=== PATIENT | female | born 1980 | race Caucasian/White ===

== ENCOUNTER 2022-01-19 22:27 | Emergency (ER) | payer OTHER ==
[~2022-01-19] VITALS: Ht 160 cm; Wt 113.4 kg
[2022-01-19] MEDS ORDERED: TETANUS, DIPHTHERIA, PERTUSSIS VAC/PF 0.5ML (>10YR OLD) IM ONE (23:15)
[2022-01-19] MEDS ORDERED: LIDOCAINE HCL/EPINEPHRINE 1%-EPI 1:100,000 30 ML VIAL INFIL ONE (23:15)
[2022-01-19] MEDS ORDERED: LIDOCAINE HCL/EPINEPHRINE 1%-EPI 1:100,000 10 ML VIAL INFIL SCH (23:25)
[2022-01-19 23:38] LABS: BASOPHILS % 0.8 % (0.0-2.0); CHLORIDE 105 mEq/L (98-107); EOSINOPHILS % 0.5 % (0.0-5.0); HEMATOCRIT. 48.1 % (36.0-48.0); HEMOGLOBIN. 16.2 g/dL (12.0-16.0); LYMPHOCYTES % 18.3 % (20.0-50.0); MEAN CORPUSCULAR HEMOGLOBIN 33.4 pg (28.0-32.0); MEAN CORPUSCULAR VOLUME 99.3 fL (81.0-99.0); MEAN PLATELET VOLUME 7.9 fl (7.4-10.4); MONOCYTES % 4.4 % (2.0-8.0); PLATELET 371 x1000/uL (130-400); RED BLOOD CELL COUNT 4.84 mill/uL (4.2-5.4); RED CELL DISTRIBUTION WIDTH 13.4 % (11.6-14.6)
[2022-01-19 23:49] LABS: ETHANOL BLOOD 294 mg/dL
[2022-01-20] MEDS ORDERED: TETANUS, DIPHTHERIA, PERTUSSIS VAC/PF 0.5ML (>10YR OLD) IM ONE (02:30)
[2022-01-20 03:45] VITALS: BP 137/83
== END 2022-01-20 03:49 | disposition home or self-care (01) ==
LOC: ER 22:27
DX: S01.81XA Laceration without foreign body of other part of head, initial encounter (principal); F12.10 Cannabis abuse, uncomplicated; M19.90 Unspecified osteoarthritis, unspecified site; F10.129 Alcohol abuse with intoxication, unspecified; Y90.8 Blood alcohol level of 240 mg/100 ml or more; W01.0XXA Fall on same level from slipping, tripping and stumbling without subsequent striking against object, initial encounter; Y93.89 Activity, other specified; Y92.012 Bathroom of single-family (private) house as the place of occurrence of the external cause
CPT/HCPCS: 12014; 36415; 70450; 70486; 80053; 80320; 85025; 90471; 90715; 99284; A4217; J3490; G0480